=== PATIENT | female | born 1975 | race American Indian/Alaskan Native ===

== ENCOUNTER 2017-04-09 06:01 | Day surgery (SDC) | payer MEDICAID ==
--- NOTE | 2017-04-09 07:12 | Short Stay Summary ---
Short Stay Documentation Date of service: 04/09/17 Narrative H&P: Pt is a 41yo WF LMP 03/31/17 presents for permanent sterilization - History Principal diagnosis: Desires sterilization H&P: obtained from office Past Medical History: hypertension Past Surgical History: Other (Laparoscopy for ectopic; Essure insertion) Social history: no significant social history, single - Allergies and Medications Current Medications: Allergies Penicillins Allergy (Verified 03/31/17 16:56) Vomiting Home Medications Medication Instructions Recorded Confirmed Last Taken Type Norgestimate-Ethinyl Estradiol 1 each PO DAILY 03/31/17 03/31/17 Unknown History [Tri-Sprintec Tablet] Active Medications Gentamicin Sulfate (Garamycin) 120 mg 1.5 mg/kg (120 mg) IV PREOP MIGUEL PRN Reason: Protocol Clindamycin HCl (Cleocin 600 Mg/50 Ml) 600 mg in 50 mls @ 100 mls/hr IV PREOP NR PRN Reason: Protocol Lactated Ringer's (Lactated Ringers) 1,000 mls @ 125 mls/hr IV DIRECT MIGUEL - Physical exam General appearance: no acute distress Integumentary: no rash HEENT: Atraumatic Lungs: Clear to auscultation Breasts: deferred Heart: Regular rate Gastrointestinal: normal Female Genitourinary: deferred Rectal Exam: deferred Extremities: no ischemia Neurological: Normal gait, Normal speech - Brief post op/procedure progress note Date of procedure: 04/09/17 Pre-op diagnosis: Desires permanent sterilization Post-op diagnosis: same Procedure: Laproscopic Bilateral Tubal Ligation Anesthesia: GETA Findings: Normal uterus. Absent proximal left fallopian tube. Normal right fallopian tube. Normal appendix. Surgeon: SUDARSHAN HENRIQUEZ Estimated blood loss: minimal Pathology: none Condition: stable - Hospital course Hospital course: Unremarkable. - Disposition Condition at discharge: Good Disposition: DC-01 TO HOME OR SELFCARE - Discharge Diagnoses (1) Encounter for sterilization Status: Resolved Short Stay Discharge Plan Activity: no restrictions Diet: regular Wound: open to air, keep clean and dry Follow up with: SUDARSHAN HENRIQUEZ MD [Staff Physician] - 14 Days Prescriptions: HYDROcodone/APAP 5-325 [[place] 5/325] 1 each PO Q6HR PRN #20 tablet PRN Reason: Pain
[2017-04-09] MEDS ORDERED: GARAMYCIN IV SCH (07:15)
--- NOTE | 2017-04-09 07:41 | Anesthesia Consultation ---
Anesthesia Consult and Med Hx Date of service: 04/09/17 - Airway Anesthetic Teeth Evaluation: Good (braces) ROM Head & Neck: Adequate Mental/Hyoid Distance: Adequate Mallampati Class: Class I Intubation Access Assessment: Probably Good - Pulmonary Exam CTA: Yes - Cardiac Exam Cardiac Exam: RRR - Pre-Operative Health Status ASA Pre-Surgery Classification: ASA1 Proposed Anesthetic Plan: General - Pulmonary Hx Smoking: No - Cardiovascular System Hx Hypertension: Yes (No longer treated, lost 70 lbs. Stopped taking 3 wks ago) - Central Nervous System Hx Psychiatric Problems: No - Other Systems Hx Cancer: No - Additional Comments Anesthesia Medical History Comments: NAC
--- NOTE | 2017-04-09 07:42 | Anesthesia Day of Surgery ---
Anesthesia Day of Surgery - Day of Surgery Patient Examined: Yes Patient H&P Reviewed: Yes Patient is NPO: Yes
[2017-04-09] MEDS ORDERED: GARAMYCIN/NS 120MG/100ML 120 MG/100 ML BAG IV SCH (08:00)
[2017-04-09] MEDS ORDERED: VERSED IV NR (08:00)
[2017-04-09] MEDS ORDERED: CLEOCIN 600 MG/50 mL 600 MG/50 ML BAG IV NR (08:00)
[2017-04-09] MEDS ORDERED: PEPCID PO NR (08:00)
[2017-04-09] MEDS ORDERED: LACTATED RINGERS 1,000 ML IV SCH (08:00)
[2017-04-09] MEDS ORDERED: DIPRIVAN 10 MG/ML IV ONE (08:07)
[2017-04-09] MEDS ORDERED: DILAUDID ONE (08:11)
[2017-04-09] MEDS ORDERED: XYLOCAINE MPF 2% ONE (08:11)
[2017-04-09] MEDS ORDERED: ZEMURON IV ONE (08:11)
[2017-04-09 08:26] LABS: Hematocrit 39.2 % (30.3-42.9); Hemoglobin 13.2 gm/dl (10.1-14.3)
[2017-04-09] MEDS ORDERED: MARCAINE 0.5% 30 ML INFILTRATI ONE (08:28)
[2017-04-09] MEDS ORDERED: PERCOCET 5/325 PO PRN (09:00)
[2017-04-09] MEDS ORDERED: ZOFRAN IV PRN (09:00)
[2017-04-09] MEDS ORDERED: DILAUDID IV PRN (09:00)
[2017-04-09] MEDS ORDERED: DECADRON ONE (09:01)
[2017-04-09] MEDS ORDERED: NEOSTIGMINE ONE (09:01)
[2017-04-09] MEDS ORDERED: ZOFRAN ONE (09:01)
[2017-04-09] MEDS ORDERED: ROBINUL ONE (09:01)
[2017-04-09] MEDS ORDERED: NACL 0.9% IR ONE (09:16)
[2017-04-09] MEDS ORDERED: MARCAINE 0.5% INFILTRATI ONE (09:16)
--- NOTE | 2017-04-09 09:45 | Operative Report ---
Operative Report Operative Report: PREOPERATIVE DIAGNOSIS: Desires permanent sterilization POSTOPERATIVE DIAGNOSIS: Same OPERATIVE PROCEDURE: Laparoscopic bilateral tubal ligation. SURGEON: Osman Cameron MD ANESTHESIA: Gen. endotracheal intubation ANESTHESIOLOGIST: Dr. Mchugh ESTIMATED BLOOD LOSS: Minimal less than 10 mL's FINDINGS: Normal uterus. Absent proximal portion of left fallopian tube. Normal right fallopian tube. Normal appendix. COMPLICATIONS: None COUNTS: Correct x3. PROCEDURE: After the patient was correctly identified and after general anesthesia was administered, the patient was prepped and draped in usual sterile fashion and placed in dorsal lithotomy position. First, the bladder was emptied using a straight catheter. Next, a speculum was placed in the vaginal vault and the anterior lip of the cervix was grasped using a single- tooth tenaculum. The uterine manipulator was then placed and the tenaculum and speculum were removed. Attention was then turned to the abdomen where first a periumbilical incision was made using a skin knife, and the Optiview trocar was inserted under direct visualization. After an adequate amount of abdominal insufflation, visualization of the pelvic organs found the uterus to be normal, and the tubes and ovaries to be normal bilaterally. Next, the left fallopian tube was grasped using the Kleppingers, and after identifying the fimbriated end of the left tube, this tube was cauterized in 3 continuous places along the distal portion of the left tube. The same procedure was performed on the right fallopian tube after first identifying the fimbriated end of the right tube. This tube was also cauterized in 3 continuous places along the proximal portion of the right tube. At this point, the procedure was then considered complete. All instruments were removed from the abdomen. The abdomen was deflated and the periumbilical incision was closed using 0 Vicryl suture in a [id number] configuration on the fascia, followed by 4-0 Monocryl suture in subcuticular fashion on the skin. The incision was also infiltrated using 0.5% Marcaine solution. The uterine manipulator was removed. The patient tolerated the procedure well and was transferred to recovery room stable condition.
--- NOTE | 2017-04-09 10:15 | Post Anesthesia Evaluation ---
- Post Anesthesia Evaluation Patient Participated: Yes Airway Patent: Yes Stable Respiratory Function: Yes Nausea/Vomiting: No Temp > 96.8F: Yes Pain Manageable: Yes Adequeate Hydration: Yes Anesthesia Complications: No Block Receding Appropriately: Not Applicable Patient on Ventilator: No
[2017-04-09 12:07] VITALS: BP 156/73
== END 2017-04-09 11:45 | disposition home or self-care (01) ==
LOC: OR 06:01
PROVIDERS: ATTEND Obstetrics & Gynecology
DX: Z30.2 Encounter for sterilization (principal); I10 Essential (primary) hypertension; Z98.890 Other specified postprocedural states; Z87.891 Personal history of nicotine dependence
CPT/HCPCS: 36415; 58670; 81025; 85014; 85018; J1100; J1170; J1580; J2250; J2405; J2704; J2710; J7120